=== PATIENT | male | born 1975 | race Caucasian/White ===

== ENCOUNTER 2017-10-04 09:25 | Emergency (ER) | payer OTHER ==
[2017-10-04 10:36] LABS: HEMATOCRIT 26.2 % (42-52); MEAN CORPUSCULAR HGB CONC 30.5 G/DL (33.0-37.0); MEAN CORPUSCULAR VOLUME 98.3 FL (80.0-94.0); MEAN PLATELET VOLUME 8.9 FL (7.4-10.4); PLATELET COUNT 65 /CUMM (130-400); RBC DISTRIBUTION WIDTH 26.6 % (11.5-14.5); RED BLOOD CELL CT 2.66 /CUMM (4.70-6.10)
[2017-10-04 11:20] LABS: WHITE BLOOD CELL COUNT 28.3 /CUMM (4.8-10.8)
--- NOTE | 2017-10-04 11:30 | RADIOLOGY REPORT ---
EXAMINATION: XR PORTABLE CHEST CLINICAL INFORMATION: 42-year-old man post port placement. History of metastatic spindle cell cancer. COMPARISON: None TECHNIQUE: Portable frontal view of the chest was obtained. FINDINGS: Extensive opacification of both lungs is again noted and appears to be due to innumerable rounded metastatic deposits, probably with areas of superimposed airspace disease. Heart size is within the range of normal. There are no pleural effusions. A right sided chest port is seen with the catheter tip terminating over the cavoatrial junction. IMPRESSION: Near-complete opacification of both lungs appears to be due to a combination of extensive metastatic disease and superimposed consolidation.
--- NOTE | 2017-10-04 11:45 | ED AMS/SEIZURE/WEAK/DIZZY ---
See Addendum History of Present Illness General Chief Complaint: General Adult Stated Complaint: BIBA FOR UNRESPOMSIVE Source: family, old records, Epic Exam Limitations: clinical condition Vital Signs & Intake/Output Vital Signs & Intake/Output Vital Signs Date Time Temp Pulse Resp B/P B/P Pulse O2 O2 Flow FiO2 Mean Ox Delivery Rate 10/04 1549 66 54/00 92 Non 100% ReBreather 10/04 1405 70 10/04 1306 63 50/00 10/04 1050 95.7 70 32 50/00 95 Non 100% ReBreather 10/04 1038 Non ReBreather 10/04 0930 94.5 178 60/00 Allergies Uncoded Allergies: Allergy Other N Med Allergies RASH WITH TYLENOL 3 Core Measure Meds Pre-Hospital antibiotics Triage Note: 42 YO MALE BIBA FROM HOME. PT HX OF BRAIN, BONE CANCER PER EMS, PT HAS RECENT R LEG FRACTURE PER EMS. ON EMS ARRIVAL, PT WAS UNRESPONSIVE, LIVES AT HOME WITH MOTHER AND HAS VISITNG NURSE. PER EMS, AT BASELINE PT DOES NOT SPEAK BUT OPENS EYES AND RESPONDS MINAMLY. ON ARRIVAL TO ER, SHALLOW RESPIRATIONS, HR 180s. RESP AND MD AT BEDSIDE ON ARRIVAL. PT HAS PORT ACCESSED FROM VISITNG NURSE 2 DAYS AGO PER EMS. PT ARRIVES WITH OPEN WOUND TO LATERAL ASPECT OF LEFT LEG AND MULTIPLE OPEN WOUNDS ON BACK WITH SKIN BREAKDOWN, ARRIVES INCONTINENT OF DRY FECES. NOTED WITH SKIN TEARS ON L LEG. LEFT LEG SEVERLY SWOLLEN, PER MOTHER PT HAS MULTIPLE BLOOD CLOTS AND PE. Triage Nurses Notes Reviewed? 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 He is bedridden with no turning in bed secondary to L femur osteomyelitis chronic pain. 2 days prior to admission he began eating and drinking less with increasing shortness of breath and lethargy. There was no reported fever chills chest pain cough nausea vomiting diarrhea abdominal pain dysuria bleeding. Past History Travel History Traveled to [place] past 21 day No Medical History Any Pertinent Medical History? see below for history Musculoskeletal: LEFT LEG FRACTURE Cancer(s): SPINDLE CELL CARCOMA Surgical History Surgical History: ORIF L femur x 2 Psychosocial History What is your primary language Serbian Tobacco Use: UN Family History Hx Contributory? No Review of Systems Review of Systems Constitutional: Reports: see HPI, weakness. EENTM: Reports: no symptoms. Respiratory: Reports: see HPI. Cardiovascular: Reports: no symptoms. GI: Reports: no symptoms. Genitourinary: Reports: no symptoms. Musculoskeletal: Reports: see HPI, joint pain, joint swelling. Skin: Reports: see HPI, rash. Neurological/Psychological: Reports: see HPI, cognitive dysfunction, weakness. Hematologic/Endocrine: Reports: no symptoms. Immunologic/Allergic: Reports: no symptoms. All Other Systems: Reviewed and Negative Physical Exam Physical Exam General Appearance: lethargic, severe distress Head: atraumatic Eyes: Bilateral: other (pupils fixed dilated). Ears, Nose, Throat: normal ENT inspection Neck: normal inspection Respiratory: chest non-tender, decreased breath sounds, rhonchi, Kussmaul respiration pattern Cardiovascular: regular rate/rhythm, normal peripheral pulses, norml femoral pulses equa Peripheral Pulses: 1+ carotid (R), 1+ carotid (L) Gastrointestinal: normal bowel sounds, soft, non-tender, no organomegaly Back: decreased range of motion Extremities: evidence of injury, limited range of motion, L femur edematous with open patellar wound R knee abrasion Neurologic/Psych: disoriented x 3, motor/sensory deficits Reflexes: 0: bicep (R), bicep (L). Skin: rash Lymphatic: no anterior cervical jose Core Measures ACS in differential dx? Yes No ASA d/t Medical Contraindication CVA/TIA Diagnosis No Sepsis Present: Yes Sepsis Focused Exam Completed? Yes ED Sepsis Exam Date of Focused Sepsis Exam: 10/04/17 Time of Focused Sepsis Exam: 1500 Sepsis Cardiac Exam: Regular Rate/Rhythm Sepsis Resp Exam: Ronchi Sepsis Cap Refill Exam: >2 sec Sepsis Peripheral Pulse Exam: Weak Sepsis Peripheral Pulse Location: Radial Sepsis Skin Color Exam: Pale Skin Temp/Moisture Exam: Warm/Dry Progress Differential Diagnosis: dehydration, encephalitis, electrolyte imbalance, hypoglycemia, hypoxia, pneumonia, sepsis Plan of Care: Orders Procedure Date/time Status Patient Data 10/04 1743 Active OXYGEN SETUP (GEN) 10/04 1536 Active Saline Lock 10/[address] in observation 10/04 1536 Active Vital Signs 10/04 1536 Active Activity/Ambulation 10/04 1536 Active Code Status 10/04 1536 Active BLOOD CULTURE 10/04 1102 Active Intake & Output 10/04 1034 Active EKG 10/04 0959 Active ARTERIAL BLOOD GAS (GEN) 10/04 09 Active Williamson, Insertion/Removal/Asses 10/04 09 Active CULTURE,URINE 10/04 0942 Active TROPONIN LEVEL 10/04 0942 Complete MAGNESIUM 10/04 941 Complete LACTIC ACID 10/04 941 Complete COMPREHENSIVE METABOLIC PANEL 10/04 941 Complete CBC WITHOUT DIFFERENTIAL 10/04 941 Complete Laboratory Tests 10/04/17 1242: Lactic Acid Cancelled 10/04/17 1016: Anion Gap 27 H, Estimated GFR 22 L, BUN/Creatinine Ratio 23.1, Glucose 87, Lactic Acid 10.7 H, Calcium 6.7 L, Magnesium 2.6 H, Total Bilirubin 2.5 H, AST 541 H, ALT 31, Alkaline Phosphatase 1047 H, Troponin I 0.05, Total Protein 4.7 L, Albumin 2.3 L, Globulin 2.4, Albumin/Globulin Ratio 1.0 L, CBC w Diff MAN DIFF ORDERED, RBC 2.66 L, MCV 98.3 H, MCH 30.0, MCHC 30.5 L, RDW 26.6 H, MPV 8.9, Segmented Neutrophils 48, Band Neutrophils 23 H, Lymphocytes 19 L, Monocytes 3, Metamyelocytes 1, Myelocytes 4 H, Nucleated RBCs 42 H, Platelet Estimate DECREASED, Polychromasia 1+, Poikilocytosis FEW, Anisocytosis 1+ 10/04/17 0950: pH 7.12 *L, pCO2 21 L, pO2 55 L, HCO3 6.5 L, ABG O2 Sat (Measured) 79.0 L, Carboxyhemoglobin Pending, O2 Concentration % 100%, O2 Delivery Method NRB, Phlebotomy Draw Site RIGHT RADIAL Microbiology 10/04 1102 BLOOD: Blood Culture - CAN Cancelled: Cancelled via OE: Per Decision 10/04 1100 BLOOD: Blood Culture - RECD 10/04 1016 URINE ROUT: Urine Culture - RECD 10/04 941 BLOOD: Blood Culture - CAN Cancelled: Cancelled via OE: Per Decision 10/04 0942 BLOOD: Blood Culture - CAN Cancelled: Cancelled via OE: Per Decision Diagnostic Imaging: Viewed by Me: Radiology Read. Discussed w/RAD: Radiology Read. CXR Impression: Near-complete opacification of both lungs appears to be due to a combination of extensive metastatic disease and superimposed consolidation. Initial ED EKG: normal axis, normal intervals, normal p-waves, normal QRS complex, normal sinus rhythm, no ST T wave changes Rhythm Strip: normal sinus rhythm Comments: Prognosis discussed with family who request patient be transferred to [facility]. Dr. Lockett overing for Dr. Farmer notified and updated. Suggests call to hospitalist team for admission. [facility] Transfer line contacted. Case discussed with Dr. Gusman. Patient to ED for bed assignment. Family decided not to transfer patient and to be on comfort measures at [facility]. Analgesia, oxygen, IVF administered. Pastoral care contacted. Mother requests additional narcotics for pain control despite hypotension. NRBM removed and changed to nasal cannula. Mother requests to continue cardiac monitoring. Departure Departure Disposition: STILL A PATIENT Condition: Stable Clinical Impression Primary Impression: Metastatic cancer Secondary Impressions: Hyperkalemia, Lactic acidosis, Sepsis Referrals: Darian GONCALVES,Austin Barbour (PCP/Family) Departure Forms: Customer Survey General Discharge Information Observation Note Spoke With: Ike GONCALVES,Agapito Kimbrough Physician Advisor Notified: TESSY GONCALVES,JOY [address] Patient In: Non-ED OBS Care Area Rationale for Observation: My rational for observation is as follows comfort care family support.. Critical Care Note Critical Care Note Critical Care Time: mins: (120)
[2017-10-04 15:49] VITALS: BP 54/00
--- NOTE | 2017-10-04 19:06 | History & Physical ---
General Information and HPI MD Statement: I have seen and personally examined JOVANNI RAO II and documented this H&P. The patient is a 42 year old M who presented with a patient stated chief complaint of [unresponsive]. Source of Information: family Exam Limitations: unresponsive Allergies/Medications Allergies: Uncoded Allergies: Allergy Other N Med Allergies RASH WITH TYLENOL 3 Compliance With Home Meds: FAIR Past History Travel History Traveled to [place] past 21 day No Medical History Musculoskeletal: LEFT LEG FRACTURE Cancer(s): SPINDLE CELL CARCOMA Surgical History Surgical History: ORIF L femur x 2 Review of Systems Review of Systems Constitutional: Reports: see HPI. Exam & Diagnostic Data Last 24 Hrs of Vital Signs/I&O Vital Signs Date Time Temp Pulse Resp B/P B/P Pulse O2 O2 Flow FiO2 Mean Ox Delivery Rate 10/04 1549 66 54/00 92 Non 100% ReBreather 10/04 1405 70 10/04 1306 63 50/00 10/04 1050 95.7 70 32 50/00 95 Non 100% ReBreather 10/04 1038 Non ReBreather 10/04 0930 94.5 178 60/00 Intake & Output 10/04 1600 10/04 0800 10/04 0000 Intake Total Output Total 4 Balance -4 Output, Urine 4 Physical Exam General Appearance severe distress, lethargic HEENT Atraumatic Cardiovascular Regular Rate, Normal S1, Normal S2 Lungs Normal Air Movement Abdomen Normal Bowel Sounds, Soft, No Tenderness Extremities evidence of injury on left femur area, right knee abrasion Vascular Normal Pulses Last 24 Hrs of Labs/Josh: Laboratory Tests 10/04/17 1242: Lactic Acid Cancelled 10/04/17 1016: Anion Gap 27 H, Estimated GFR 22 L, BUN/Creatinine Ratio 23.1, Glucose 87, Lactic Acid 10.7 H, Calcium 6.7 L, Magnesium 2.6 H, Total Bilirubin 2.5 H, AST 541 H, ALT 31, Alkaline Phosphatase 1047 H, Troponin I 0.05, Total Protein 4.7 L, Albumin 2.3 L, Globulin 2.4, Albumin/Globulin Ratio 1.0 L, CBC w Diff MAN DIFF ORDERED, RBC 2.66 L, MCV 98.3 H, MCH 30.0, MCHC 30.5 L, RDW 26.6 H, MPV 8.9, Segmented Neutrophils 48, Band Neutrophils 23 H, Lymphocytes 19 L, Monocytes 3, Metamyelocytes 1, Myelocytes 4 H, Nucleated RBCs 42 H, Platelet Estimate DECREASED, Polychromasia 1+, Poikilocytosis FEW, Anisocytosis 1+ 10/04/17 0950: pH 7.12 *L, pCO2 21 L, pO2 55 L, HCO3 6.5 L, ABG O2 Sat (Measured) 79.0 L, Carboxyhemoglobin Pending, O2 Concentration % 100%, O2 Delivery Method NRB, Phlebotomy Draw Site RIGHT RADIAL Microbiology 10/04 1102 BLOOD: Blood Culture - CAN Cancelled: Cancelled via OE: Per MD Decision 10/04 1100 BLOOD: Blood Culture - RECD 10/04 1016 URINE ROUT: Urine Culture - RECD 10/04 0942 BLOOD: Blood Culture - CAN Cancelled: Cancelled via OE: Per MD Decision 10/04 0942 BLOOD: Blood Culture - CAN Cancelled: Cancelled via OE: Per MD Decision Diagnostic Data CXR Results Near complete opacification of both lungs with extensive metastatic disease and superimposed consolidation. 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 Baseline he is bedridden, due to severe left femur osteomyelitis and chronic pain it is even difficult for him to turn in the bed. 2 days prior to today's presentation he started to have increasing shortness of breath and lethargy. 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 Family decided while in the ER to make patient comfort measures and patient's CODE STATUS is now changed to comfort measures. We will continue nitrates, oxygen and IV fluids to keep him comfortable and will discontinue rest of the medications. As Ranked By This Provider Problem List: 1. Metastatic cancer 2. Sepsis 3. Lactic acidosis 4. Hyperkalemia Core Measures/Misc (05/24) Acute Coronary Syndrome ACS Diagnosis: No Congestive Heart Failure Congestive Heart Failure Diagnosis No Cerebrovascular Accident CVA/TIA Diagnosis: No VTE (View Protocol) VTE Risk Factors Other No Mechanical VTE Prophylaxis d/t Other No VTE Pharm Prophylaxis d/t Other Sepsis (View protocol) Sepsis Present: No
== END 2017-10-04 19:12 | disposition expired ==
LOC: ERH 09:25 → ERHI 15:36 → ERH 15:36 → CANRESERV 18:07 → ENRESERV 18:07 → ERH 19:12 → CANBEDREQ 10-05 21:18
PROVIDERS: Emergency Medicine
DX: A41.9 Sepsis, unspecified organism (principal); C79.9 Secondary malignant neoplasm of unspecified site; E87.5 Hyperkalemia; E87.2 Acidosis
CPT/HCPCS: 1387; 71045; 87040; 87086; 93005; 93010; 94799; 96374; 96375; 96376; 99291; J2310